=== PATIENT | male | born 1960 | race Caucasian/White ===

== ENCOUNTER 2017-04-14 11:23 | Emergency (ER) | payer OTHER ==
[~2017-04-14] VITALS: Ht 175.3 cm; Wt 62.4 kg
[2017-04-14] MEDS ORDERED: SODIUM CHLORIDE FLUSH 10ML SYR IVF ONE (12:30)
[2017-04-14] MEDS ORDERED: SODIUM CHLORIDE 0.9% 1,000ML IVBOLUS ONE (12:30)
[2017-04-14 12:37] LABS: HEMATOCRIT 42.9 % (39.2-51.8); HEMOGLOBIN 14.8 g/dL (13.7-18.0); WHITE BLOOD COUNT 7.6 x10^3/uL (3.4-10)
[2017-04-14 12:49] LABS: ASPARTATE AMINO TRANSFERASE 37 U/L (15-37); BLOOD UREA NITROGEN 7 mg/dL (7-18)
[2017-04-14 13:00] LABS: IS PT STATUS REG ER OR PRE ER? YES
[2017-04-14] MEDS ORDERED: MECLIZINE CHEWABLE 25 MG TAB PO ONE (14:30)
[2017-04-14] MEDS ORDERED: MECLIZINE CHEWABLE 25 MG TAB ONE (14:40)
[2017-04-14 16:02] VITALS: BP 135/73
== END 2017-04-14 16:04 | disposition home or self-care (01) ==
LOC: ED 15:13
DX: H81.13 Benign paroxysmal vertigo, bilateral (principal); F17.200 Nicotine dependence, unspecified, uncomplicated; Z88.0 Allergy status to penicillin
CPT/HCPCS: 36415; 70450; 71010; 80053; 81001; 84484; 85025; 87086; 93005; 93880; 99285